=== PATIENT | female | born 1995 | race African-American/Black ===

== ENCOUNTER 2016-03-17 18:26 | Emergency (ER) | payer BC ==
[2016-03-17] MEDS ORDERED: OPTIRAY 350 100 ML VIAL HMH IV ONE (18:27)
[2016-03-17] MEDS ORDERED: DILAUDID 1 MG/ML AMP ONE ×2 (20:12→21:55)
[2016-03-17] MEDS ORDERED: ONDANSETRON 4 MG VIAL ONE (20:12)
[2016-03-17] MEDS ORDERED: DICYCLOMINE 20MG/2ML VIAL IM ONE (20:12)
[2016-03-17] MEDS ORDERED: SODIUM CHLORIDE 0.9% 1,000 ML ONE (20:13)
== END 2016-03-17 23:49 | disposition home or self-care (01) ==
LOC: ER 18:26
DX: R10.13 Epigastric pain (principal); R11.2 Nausea with vomiting, unspecified; N30.00 Acute cystitis without hematuria
CPT/HCPCS: 36415; 74177; 80053; 81001; 83690; 84703; 85025; 87088; 96361; 96372; 96374; 96375; 96376